=== PATIENT | female | born 2000 | race African-American/Black ===

== ENCOUNTER 2023-08-22 15:18 | Emergency (ER) | payer OTHER, SELFPAY ==
--- NOTE | ~2023-08-22 | US_ITS ---
EXAMINATION: US OB <=14 wk fetus w TV DATE: 08/22/2023 19:38 INDICATION: Pelvic pain. Vaginal bleeding. TECHNIQUE: Real-time transabdominal and transvaginal pelvic ultrasound was performed. COMPARISON: None. FINDINGS: TRANSABDOMINAL ULTRASOUND: The uterus measures 8.1 x 5.1 x 6.0 cm. TRANSVAGINAL ULTRASOUND: There is an intrauterine gestational sac. A yolk sac is identified. The fet al crown rump length measures 1.0 cm, which correlates with an estimated gestational age of 7 weeks a nd 9 day(s) (+/-) 4 day(s). heart motion is identified measuring 131 beats per minute (bpm) by M-mode Doppler. There is a small subchorionic hematoma. The right ovary measures 4.4 x 1.5 x 2.5 cm. The left ovary measures 2.4 x 1.6 x 2.3 cm. There is physiologic free fluid in the pelvis. IMPRESSION: 1. Single living intrauterine gestation with estimated date of delivery of 04/09/2024. 2. Small subchorionic hematoma. Reviewed, dictated and finalized at location E. CUTTER IMPRESSION: 1. Single living intrauterine gestation with estimated date of delivery of 03/17. 2. Small subchorionic hematoma.
[2023-08-22 15:34] VITALS: BP 153/88; PULSE 96; RESP 17; TEMP 36.4; O2SAT 100
[2023-08-22 15:49] LABS: Basophils Percent Auto 0.5 % (0.2-1.2); Eosinophils Percent Auto 0.3 % (0-4.4); Hematocrit 38.6 % (37.0-47.0); Hemoglobin 12.5 g/dL (12.0-15.0); Immature Granulocyte Absolute 0.03 K/mm3 (0.00-0.031); Immature Granulocyte Percent A 0.4 % (0-0.5); Lymphocytes Absolute Auto 1.67 K/mm3 (0.9-3.2); Lymphocytes Percent Auto 21.2 % (18.3-44.2); Mean Corpuscular HGB Conc 32.4 g/dl (32-36); Mean Corpuscular Hemoglobin 26.3 pg (26-34); Mean Corpuscular Volume 81.1 fl (80-100); Mean Platelet Volume 9.8 fl (7.4-10.4); Monocytes Absolute Auto 0.5 K/mm3 (0.1-0.6); Monocytes Percent Auto 6.7 % (2.6-8.5); Neutrophils Absolute Auto 5.6 K/mm3 (1.3-6.7); Neutrophils Percent Auto 70.9 % (45.5-73.1); Platelet Count Result 333 k/mm3 (150-375); Red Blood Count 4.76 M/mm3 (4.2-5.4); Red Cell Distribution Width 14.5 % (11.5-14.5); White Blood Count 7.9 K/mm3 (4.5-10.0)
[2023-08-22 16:03] LABS: Alanine Aminotransferase 17 U/L (6-35); Albumin Level 4.2 g/dL (3.5-5.1); Alkaline Phosphatase 55 U/L (38-126); Anion Gap 7 mmol/L (8-16); Aspartate Amino Transferase 21 U/L (14-36); Bilirubin,Total 0.5 mg/dL (0.2-1.3); Blood Urea Nitrogen 6 mg/dL (7-17); Calcium 10.1 mg/dL (8.4-10.2); Carbon Dioxide 24 mmol/L (22-30); Chloride 103 mmol/L (98-107); Estimated CRCL calculation 155 ml/min; Estimated Glomerular Filt Rate > 60; Glucose 92 mg/dL (65-110); Potassium 3.6 mmol/L (3.4-5.0); Sodium 134 mmol/L (137-145)
[2023-08-22 16:20] LABS: Partial Thromboplastin Time 29.3 SECONDS (22.3-36.8); Prothrombin Time 13.1 Seconds (11.1-14.7)
[2023-08-22 17:36] VITALS: BP 143/84; PULSE 75
[2023-08-22 17:38] VITALS: BP 147/96; PULSE 81
[2023-08-22 17:40] VITALS: BP 145/91; PULSE 83; PULSE 94; RESP 15; O2SAT 100
--- NOTE | 2023-08-22 18:51 | ED.PREGNANCY ---
HPI - General Chief complaint: Vaginal Bleeding Stated complaint: abd pain, vag bleed/preg Time Seen by Provider: 08/22/23 16:41 History of Present Illness HPI Narrative: Patient is a 23-year-old female presenting with vaginal bleeding. Patient states that she is about 7 weeks . Last menstrual period was June 16. Today she had bleeding when she wiped as well as lower abdominal cramping so she became concerned and came in for evaluation. Also complains of a mild headache. No fevers, dysuria, nausea vomiting, constipation. States that she has had a couple days of diarrhea. Related Data Allergies Allergy/AdvReac Type Severity Reaction Status Date / Time No Known Allergies Allergy Verified 08/22/23 18:56 Review of Systems Review of Systems: All systems reviewed & are unremarkable except as noted in HPI and below Exam Narrative: GENERAL: Well-appearing, well-nourished, and in no acute distress. HEAD: Normocephalic, atraumatic. EYES: PERRLA and EOMI. ENT: Mucous membranes moist. NECK: Supple. CHEST: No respiratory distress. HEART: Regular rate and rhythm ABDOMEN: Soft, nontender, nondistended EXTREMITIES: Normal range of motion. SKIN: Warm, dry, no rash. NEURO: Alert and oriented x3. PSYCH: Normal mood and affect. Course Vital Signs Vital signs: Vital Signs Temperature 97.5 F L 08/22/23 15:34 Pulse Rate 96 08/22/23 15:34 Respiratory Rate 17 08/22/23 15:34 Blood Pressure 153/88 H 08/22/23 15:34 Pulse Oximetry 100 08/22/23 15:34 Oxygen Delivery Room Air 08/22/23 15:34 Temperature 98.3 F 08/22/23 20:41 Pulse Rate 64 08/22/23 20:59 Respiratory Rate 17 08/22/23 20:59 Blood Pressure 131/74 08/22/23 20:59 Pulse Oximetry 99 08/22/23 20:59 Oxygen Delivery Room Air 08/22/23 15:34 MDM - OB/Uterine Contractions MDM Narrative Medical decision making narrative: 23-year-old female presenting with vaginal bleeding in the setting of early . Vitals are stable. Exam remarkable for the above. Blood work is unremarkable. Stable hemoglobin. Rh negative, does require RhoGAM. Pelvic ultrasound with a live intrauterine gestation now. There is a small subchorionic hematoma. Suspect this is the cause of her vaginal bleeding. Patient received a dose of RhoGAM, she is safe for outpatient management. Advised close follow-up with OB Gyne. Appropriate return precautions given. Discharged in stable condition. Differential Diagnosis Differential diagnosis: Likely other (First trimester vaginal bleeding, subchorionic hematoma) Medical Records Attestation: I reviewed the patient's medical records. Lab Data Attestation: I reviewed the patient's lab results. 08/22/23 15:41 08/22/23 15:41 Labs: Lab Results 08/22/23 08/22/23 Range/Units 15:41 15:42 WBC 7.9 (4.5-10.0) K/mm3 RBC 4.76 (4.2-5.4) M/mm3 Hgb 12.5 (12.0-15.0) g/dL Hct 38.6 (37.0-47.0) % MCV 81.1 (80-100) fl MCH 26.3 (26-34) pg MCHC 32.4 (32-36) g/dl RDW 14.5 (11.5-14.5) % Plt Count 333 (150-375) k/mm3 MPV 9.8 (7.4-10.4) fl Immature Gran % (Auto) 0.4 (0-0.5) % Neut % (Auto) 70.9 (45.5-73.1) % Lymph % (Auto) 21.2 (18.3-44.2) % Wayne % (Auto) 6.7 (2.6-8.5) % Eos % (Auto) 0.3 (0-4.4) % Baso % (Auto) 0.5 (0.2-1.2) % Lymph # (Auto) 1.67 (0.9-3.2) K/mm3 Wayne # (Auto) 0.5 (0.1-0.6) K/mm3 Eos # (Auto) 0.0 (0-0.3) K/mm3 Baso # (Auto) 0.0 (0.0-0.1) K/mm3 Abs Immat Gran (auto) 0.03 (0.00-0.031) K/mm3 Absolute Neuts (auto) 5.6 (1.3-6.7) K/mm3 Absolute Nucleated RBC 0.0 (0.0-0.012) K/mm3 Nucleated RBC % 0.0 (0.0-0.2) % PT 13.1 (11.1-14.7) Seconds INR 1.0 APTT 29.3 (22.3-36.8) SECONDS Sodium 134 L (137-145) mmol/L Potassium 3.6 (3.4-5.0) mmol/L Chloride 103 (98-107) mmol/L Carbon Dioxide 24 (22-30) mmol/L Anion Gap 7 L (8-16) mmol/L BUN 6 L (
[2023-08-22] MEDS: RHO(D) IMMUNE GLOBULIN 300 MCG/2 ML SYRINGE IM (20:32)
[2023-08-22] MEDS: ACETAMINOPHEN 500 MG TABLET 1000 MG PO (20:32)
[2023-08-22 20:41] VITALS: BP 137/78; PULSE 79; RESP 16; TEMP 36.8; O2SAT 100
[2023-08-22 20:59] VITALS: BP 131/74; PULSE 64; RESP 17; O2SAT 99
== END 2023-08-22 21:00 | disposition home or self-care (01) ==
PROVIDERS: Emergency Provider Emergency Medicine
DX: O36.8910 Maternal care for other specified fetal problems, first trimester, not applicable or unspecified (principal); Z3A.01 Less than 8 weeks gestation of pregnancy
CPT/HCPCS: 36415; 76801; 76817; 80053; 84702; 85025; 85461; 85610; 85730; 86850; 86900; 86901; 90384; 96372; 99284; A9270; J2790

== ENCOUNTER 2024-01-27 11:07 | Observation (INO) | payer OTHER, SELFPAY ==
[2024-01-27 11:20] VITALS: BMI 42.2
[2024-01-27 11:30] VITALS: BP 124/69; PULSE 92
[2024-01-27 11:45] VITALS: BP 116/74; PULSE 96
[2024-01-27] MEDS: FLUCONAZOLE 100 MG TABLET PO (11:48)
[2024-01-27 11:49] VITALS: TEMP 36.6
--- NOTE | 2024-01-27 11:56 | OBADM ---
This patient, Tapan Roberts, admitted to the OB room [facility] for observation. Patient/family oriented to hospital policies and general routines including ID bracelet, bed and alarms, visiting hours, pain management, procedures, bathroom and other care routines, personal items, smoking policy, room service/diet, and visiting hours. Patient/Family are encouraged to report perceived risks to care and to ask questions if they do not understand what they are told or what they should do.
[2024-01-27 12:00] VITALS: BP 118/71; PULSE 87
--- NOTE | 2024-01-27 12:04 | PC.NURSE ---
1134--Reported pt status to Dr. Gooden. Orders received.
[2024-01-27 12:15] VITALS: BP 115/69; PULSE 89
--- NOTE | 2024-01-29 09:22 | PM.OBTRLD ---
OB - Triage/Final Diagnosis Visit Information Comments/Additional reasons for admission: I have assessed the risk for this patient, Tapan Roberts, and determined that she would benefit from observation care. Final Diagnosis (1) Abdominal pain affecting : Code(s): O26.899 - Other specified related conditions, unspecified trimester; R10.9 - Unspecified abdominal pain Status: Acute
== END 2024-01-27 12:23 | disposition home or self-care (01) ==
PROVIDERS: Admitting Provider Obstetrics & Gynecology; Visit Provider Obstetrics & Gynecology
DX: O26.899 Other specified pregnancy related conditions, unspecified trimester (principal); R10.9 Unspecified abdominal pain
CPT/HCPCS: A9270; G0378; G0379